=== PATIENT | male | born 1985 | race Native Hawaiian/Other Pacific Islander ===

== ENCOUNTER 2018-12-01 18:37 | Emergency (ER) | payer OTHER ==
[~2018-12-01] VITALS: Ht 170.2 cm; Wt 81.6 kg
[2018-12-01 18:54] VITALS: BP 139/90; TEMP 99.1
== END 2018-12-01 20:00 | disposition home or self-care (01) ==
LOC: ED 18:37
DX: J11.1 Influenza due to unidentified influenza virus with other respiratory manifestations (principal)
CPT/HCPCS: 99282